=== PATIENT | male | born 1995 | race African-American/Black ===

== ENCOUNTER 2016-02-20 20:20 | Emergency (ER) | payer OTHER ==
--- NOTE | 2016-02-20 22:13 | EDDOCDS ---
Physician Documentation [facility] Name: Alondra Barrera Age: 20 yrs Sex: Male : 1995 Arrival Date: 02/20/2016 Time: 20:20 Bed TR7 Private MD: [facility] [place] Disposition: 02/20/16 21:59 Discharged to Home/Self Care. Impression: Acute upper respiratory infections of multiple and unspecified sites. - Condition is Stable. - Discharge Instructions: Pharyngitis. - Prescriptions for lidocaine HCl 2 % Mucous Membrane solution - take 15 milliliter by ORAL route every 3 hours As needed swish, gargle and spit.; 200 milliliter. Prednisone 20 mg Oral Tablet - take 1 tablet by ORAL route once daily for 5 days; 5 tablet. - Medication Reconciliation, Local Pharmacy Hours form. - Follow up: Emergency Department; When: As needed. Follow up: [facility]; When: Call to arrange an appointment; Reason: Wound/Symptom Recheck, Recheck today's complaints, Continuance of care. - Problem is an ongoing problem. - Symptoms are unchanged. Historical: - Home Meds: 1. albuterol sulfate 90 mcg/actuation Inhl HFAA every 4-6 hours (Last dose: 02/19/2016) 2. Advair Diskus 250-50 mcg/dose Inhl dsdv (Last dose: 02/20/2016 07:00) - PMHx: Asthma; - PSHx: none; - Social history: Smoking status: Patient states was never smoker of tobacco. Patient/guardian denies using alcohol, street drugs, No barriers to communication noted, The patient speaks fluent [place] Rican, Speaks appropriately for age. - Family history: Not pertinent, No immediate family members are acutely ill. - : The pt / caregiver states he / she is not on anticoagulants. Home medication list is obtained from the patient. - Exposure Risk Screening:: None identified. Vital Signs: 02/19 20:22 BP 137 / 67; Pulse 88; Resp 18 S; Temp 97.7(O); Pulse Ox 100% on R/A; Weight 86.18 kg / dd6 189.99 lbs (R); Height 5 ft. 7 in. (170.18 cm) (R); 20:22 Body Mass Index 29.76 (86.18 kg, 170.18 cm) dd6 MDM: 21:36 Strep Screen, Nursing ordered. lf1 21:38 GATS (NEGATIVE STREP SCREEN) Ordered. EDMS Signatures: Dispatcher [employer] EDMS Johanna LathamRN RN lf1 Anette DavisRN RN rs3 Mary Beth Luciano RN RN ttb Daniel Boothe, PA-C PA-C cc10 MTDD
--- NOTE | 2016-02-20 22:13 | EDDOCDS ---
Nurse's Notes [facility] Name: Alondra Barrera Age: 20 yrs Sex: Male : 1995 Arrival Date: 02/20/2016 Time: 20:20 Bed TR7 Private MD: ORCharlie WOOD Diagnosis: Acute upper respiratory infections of multiple and unspecified sites Presentation: 02/19 20:33 Presenting complaint: Patient states: "white spot on the back of my throat" and "it was ttb swollen" x1 week. Adult Sepsis Screening: The patient does not have new or worsening altered mentation. Patient's respiratory rate is less than 22. Systolic blood pressure is greater than 100. Patient has a qSOFA score of 0- Negative Sepsis Screen. Suicide/Homicide risk assessment- the patient denies having any suicidal and/or homicidal ideations and does not present with any other emotional, behavioral or mental health complaints. 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 Transition of care: patient was not received from another setting of care. 20:33 Acuity: MEME Level 4 ttb 20:33 Method Of Arrival: Walkin/Carried/Asstd ttb Triage Assessment: 20:35 General: Appears in no apparent distress, well nourished, well groomed, Behavior is ttb appropriate for age, cooperative, pleasant. Pain: Location: throat, left greater than right 7/10. HIV screening NA for this visit Offered previously. Neurological: Level of Consciousness is awake, alert, Oriented to person, place, time. EENT: Reports pain in throat when swallowing Denies nasal congestion, nasal discharge. Cardiovascular: Chest pain is denied. Respiratory: Airway is patent Respiratory effort is even, unlabored, Reports cough that is non-productive, Denies shortness of breath. Derm: Skin is normal. Injury Description: No known injury. Historical: - Home Meds: 1. albuterol sulfate 90 mcg/actuation Inhl HFAA every 4-6 hours (Last dose: 02/19/2016) 2. Advair Diskus 250-50 mcg/dose Inhl dsdv (Last dose: 02/20/2016 07:00) - PMHx: Asthma; - PSHx: none; - Social history: Smoking status: Patient states was never smoker of tobacco. Patient/guardian denies using alcohol, street drugs, No barriers to communication noted, The patient speaks fluent [place] Islander, Speaks appropriately for age. - Family history: Not pertinent, No immediate family members are acutely ill. - : The pt / caregiver states he / she is not on anticoagulants. Home medication list is obtained from the patient. - Exposure Risk Screening:: None identified. Screenin:51 Screening information is obtained from the patient. Fall risk: No risks identified. lf1 Assistance ADL's: requires no assistance with activities of daily living. Abuse/DV Screen: The patient / caregiver reports he/she is: not in a situation that causes fear, pain or injury. Nutritional screening: No deficits noted. Advance Directives: Currently, there is no health care proxy. There is no active DNR order. home support is adequate. Assessment: 20:51 General: Appears in no apparent distress, comfortable, Behavior is cooperative. Pain: lf1 Location: throat Pain currently is 7 out of 10 on a pain scale. Neurological: Level of Consciousness is awake, alert, Oriented to person, place, time. EENT: Throat is reddened Reports pain with swallowing. Cardiovascular: Chest pain is denied. Respiratory: Respiratory effort is even, unlabored, Reports cough that is the patient has mild shortness of breath. GI: Denies nausea, vomiting. : Denies burning with urination, inability to void, urinary frequency. Derm: Skin is normal. Injury Description: No known injury. Vital Signs: 20:22 BP 137 / 67; Pulse 88; Resp 18 S; Temp 97.7(O); Pulse Ox 100% on R/A; Weight 86.18 kg dd6 (R); Height 5 ft. 7 in. (170.18 cm) (R); 20:22 Body Mass Index 29.76 (86.18 kg, 170.18 cm) dd6 Vitals: 20:22 Log In Time: February 20, 2016 at 20:20. dd6 21:37 Strep Screen is obtained and tested: Negative, a GATSNEG culture is ordered in [facility] and sent. ED Course: 20:21 Patient visited by Robi Mcknight PCA. dd6 20:21 [facility], Charlie Guathier is Private Physician. dd6 20:21 Patient moved to Waiting dd6 20:22 Patient moved to Pre RCE dd6 20:34 Triage Initiated ttb 20:36 Patient visited by Mary Beth Luciano RN. ttb 20:51 Patient moved to Triage 2 lf1 20:51 The patient / caregiver is instructed regarding the plan of care and ED course. lf1 20:59 Patient visited by Johanna Latham RN. lf1 21:40 GATS (NEGATIVE STREP SCREEN) Sent. ar3 21:55 [facility] cc10 21:55 Erwin Stovall DO is Attending Physician. cc10 21:55 Patient visited by Daniel Boothe PA-C. cc10 21:55 Patient visited by Daniel Boothe PA-C. cc10 21:59 [facility] cc10 22:07 Patient moved to TR7 ar3 22:12 No IV's were initiated during this patient's visit. No procedures done that require rs3 assistance. Order Results: There are currently no results for this order. Outcome: 21:59 Discharge ordered by Provider. cc10 22:08 Discharge Assessment: patient administered narcotics - no. The following High Risk rs3 Discharge criteria are identified: None. Discharged to home ambulatory. Condition: stable. Discharge instructions given to patient, Instructed on discharge instructions, follow up and referral plans. medication usage, Demonstrated understanding of instructions, medications, Pt was receptive of discharge instructions/ teaching. Prescriptions given X 2. No special radiology studies were completed. Property :Personal belongings accompany Pt. 22:12 Patient left the ED. rs3 Signatures: Johanna Latham RN RN lf1 Robi Mcknight, FINISHED GOODS STOCK CLERK FINISHED GOODS STOCK CLERK dd6 Anette Davis RN RN rs3 Sumaya Alarcon, FINISHED GOODS STOCK CLERK FINISHED GOODS STOCK CLERK ar3 Mary Beth Luciano RN RN ttb Daniel Boothe PA-C PA-C cc10 MTDD
--- NOTE | 2016-02-22 23:13 | EDDOCDS ---
Physician Documentation [facility] Name: Alondra Barrera Age: 20 yrs Sex: Male : 1995 Arrival Date: 02/20/2016 Time: 20:20 Bed TR7 Private MD: [facility] [place] Disposition: 02/20/16 21:59 Discharged to Home/Self Care. Impression: Acute upper respiratory infections of multiple and unspecified sites. - Condition is Stable. - Discharge Instructions: Pharyngitis. - Prescriptions for lidocaine HCl 2 % Mucous Membrane solution - take 15 milliliter by ORAL route every 3 hours As needed swish, gargle and spit.; 200 milliliter. Prednisone 20 mg Oral Tablet - take 1 tablet by ORAL route once daily for 5 days; 5 tablet. - Medication Reconciliation, Local Pharmacy Hours form. - Follow up: Emergency Department; When: As needed. Follow up: [facility]; When: Call to arrange an appointment; Reason: Wound/Symptom Recheck, Recheck today's complaints, Continuance of care. - Problem is an ongoing problem. - Symptoms are unchanged. Historical: - Home Meds: 1. albuterol sulfate 90 mcg/actuation Inhl HFAA every 4-6 hours (Last dose: 02/19/2016) 2. Advair Diskus 250-50 mcg/dose Inhl dsdv (Last dose: 02/20/2016 07:00) - PMHx: Asthma; - PSHx: none; - Social history: Smoking status: Patient states was never smoker of tobacco. Patient/guardian denies using alcohol, street drugs, No barriers to communication noted, The patient speaks fluent Belarusian, Speaks appropriately for age. - Family history: Not pertinent, No immediate family members are acutely ill. - : The pt / caregiver states he / she is not on anticoagulants. Home medication list is obtained from the patient. - Exposure Risk Screening:: None identified. Vital Signs: 02/19 20:22 BP 137 / 67; Pulse 88; Resp 18 S; Temp 97.7(O); Pulse Ox 100% on R/A; Weight 86.18 kg / dd6 189.99 lbs (R); Height 5 ft. 7 in. (170.18 cm) (R); 20:22 Body Mass Index 29.76 (86.18 kg, 170.18 cm) dd6 MDM: 21:36 Strep Screen, Nursing ordered. lf1 21:38 GATS (NEGATIVE STREP SCREEN) Ordered. EDMS 02/20 01:12 T-Sheet-- Draft Copy was scanned into [employer] and attached to record. hs2 02/21 16:24 [facility] Payment Agreement was scanned into [employer] and attached to record. zo Signatures: Dispatcher [employer] EDMS Brenda Bran Lisa,RN RN lf1 Anette DavisRN RN rs3 Mary Beth Luciano, XENA RN ttb Daniel Boothe, PA-C PA-C cc10 Natalie Marino, Reg Reg hs2 The chart was reviewed and I authenticate all verbal orders and agree with the evaluation and treatment provided.Attachments: 02/20 01:12 T-Sheet-- Draft Copy hs2 02/21 16:24 [facility] Payment Agreement zo Chart Complete MTDD
--- NOTE | 2016-02-22 23:13 | EDDOCDS ---
Physician Documentation [facility] Name: Alondra Barrera Age: 20 yrs Sex: Male : 1995 Arrival Date: 02/20/2016 Time: 20:20 Bed TR7 Private MD: [facility] [place] Disposition: 02/20/16 21:59 Discharged to Home/Self Care. Impression: Acute upper respiratory infections of multiple and unspecified sites. - Condition is Stable. - Discharge Instructions: Pharyngitis. - Prescriptions for lidocaine HCl 2 % Mucous Membrane solution - take 15 milliliter by ORAL route every 3 hours As needed swish, gargle and spit.; 200 milliliter. Prednisone 20 mg Oral Tablet - take 1 tablet by ORAL route once daily for 5 days; 5 tablet. - Medication Reconciliation, Local Pharmacy Hours form. - Follow up: Emergency Department; When: As needed. Follow up: [facility]; When: Call to arrange an appointment; Reason: Wound/Symptom Recheck, Recheck today's complaints, Continuance of care. - Problem is an ongoing problem. - Symptoms are unchanged. Historical: - Home Meds: 1. albuterol sulfate 90 mcg/actuation Inhl HFAA every 4-6 hours (Last dose: 02/19/2016) 2. Advair Diskus 250-50 mcg/dose Inhl dsdv (Last dose: 02/20/2016 07:00) - PMHx: Asthma; - PSHx: none; - Social history: Smoking status: Patient states was never smoker of tobacco. Patient/guardian denies using alcohol, street drugs, No barriers to communication noted, The patient speaks fluent Vietnamese, Speaks appropriately for age. - Family history: Not pertinent, No immediate family members are acutely ill. - : The pt / caregiver states he / she is not on anticoagulants. Home medication list is obtained from the patient. - Exposure Risk Screening:: None identified. Vital Signs: 02/19 20:22 BP 137 / 67; Pulse 88; Resp 18 S; Temp 97.7(O); Pulse Ox 100% on R/A; Weight 86.18 kg / dd6 189.99 lbs (R); Height 5 ft. 7 in. (170.18 cm) (R); 20:22 Body Mass Index 29.76 (86.18 kg, 170.18 cm) dd6 MDM: 21:36 Strep Screen, Nursing ordered. lf1 21:38 GATS (NEGATIVE STREP SCREEN) Ordered. EDMS 02/20 01:12 T-Sheet-- Draft Copy was scanned into [employer] and attached to record. hs2 02/21 16:24 [facility] Payment Agreement was scanned into [employer] and attached to record. zo Signatures: Dispatcher [employer] EDMS Brenda Bran Lisa,RN RN lf1 Anette DavisRN RN rs3 Mary Beth Luciano, XENA RN ttb Daniel Boothe, PA-C PA-C cc10 Natalie Marino, Reg Reg hs2 The chart was reviewed and I authenticate all verbal orders and agree with the evaluation and treatment provided.Attachments: 02/20 01:12 T-Sheet-- Draft Copy hs2 02/21 16:24 [facility] Payment Agreement zo Chart Complete MTDD
--- NOTE | 2016-02-22 23:13 | EDDOCDS ---
Nurse's Notes [facility] Name: Alondra Barrera Age: 20 yrs Sex: Male : 1995 Arrival Date: 02/20/2016 Time: 20:20 Bed TR7 Private MD: VACharlie WOOD Diagnosis: Acute upper respiratory infections of multiple and unspecified sites Presentation: 02/19 20:33 Presenting complaint: Patient states: "white spot on the back of my throat" and "it was ttb swollen" x1 week. Adult Sepsis Screening: The patient does not have new or worsening altered mentation. Patient's respiratory rate is less than 22. Systolic blood pressure is greater than 100. Patient has a qSOFA score of 0- Negative Sepsis Screen. Suicide/Homicide risk assessment- the patient denies having any suicidal and/or homicidal ideations and does not present with any other emotional, behavioral or mental health complaints. 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 Transition of care: patient was not received from another setting of care. 20:33 Acuity: MEME Level 4 ttb 20:33 Method Of Arrival: Walkin/Carried/Asstd ttb Triage Assessment: 20:35 General: Appears in no apparent distress, well nourished, well groomed, Behavior is ttb appropriate for age, cooperative, pleasant. Pain: Location: throat, left greater than right 7/10. HIV screening NA for this visit Offered previously. Neurological: Level of Consciousness is awake, alert, Oriented to person, place, time. EENT: Reports pain in throat when swallowing Denies nasal congestion, nasal discharge. Cardiovascular: Chest pain is denied. Respiratory: Airway is patent Respiratory effort is even, unlabored, Reports cough that is non-productive, Denies shortness of breath. Derm: Skin is normal. Injury Description: No known injury. Historical: - Home Meds: 1. albuterol sulfate 90 mcg/actuation Inhl HFAA every 4-6 hours (Last dose: 02/19/2016) 2. Advair Diskus 250-50 mcg/dose Inhl dsdv (Last dose: 02/20/2016 07:00) - PMHx: Asthma; - PSHx: none; - Social history: Smoking status: Patient states was never smoker of tobacco. Patient/guardian denies using alcohol, street drugs, No barriers to communication noted, The patient speaks fluent Kosovan, Speaks appropriately for age. - Family history: Not pertinent, No immediate family members are acutely ill. - : The pt / caregiver states he / she is not on anticoagulants. Home medication list is obtained from the patient. - Exposure Risk Screening:: None identified. Screenin:51 Screening information is obtained from the patient. Fall risk: No risks identified. lf1 Assistance ADL's: requires no assistance with activities of daily living. Abuse/DV Screen: The patient / caregiver reports he/she is: not in a situation that causes fear, pain or injury. Nutritional screening: No deficits noted. Advance Directives: Currently, there is no health care proxy. There is no active DNR order. home support is adequate. Assessment: 20:51 General: Appears in no apparent distress, comfortable, Behavior is cooperative. Pain: lf1 Location: throat Pain currently is 7 out of 10 on a pain scale. Neurological: Level of Consciousness is awake, alert, Oriented to person, place, time. EENT: Throat is reddened Reports pain with swallowing. Cardiovascular: Chest pain is denied. Respiratory: Respiratory effort is even, unlabored, Reports cough that is the patient has mild shortness of breath. GI: Denies nausea, vomiting. : Denies burning with urination, inability to void, urinary frequency. Derm: Skin is normal. Injury Description: No known injury. Vital Signs: 20:22 BP 137 / 67; Pulse 88; Resp 18 S; Temp 97.7(O); Pulse Ox 100% on R/A; Weight 86.18 kg dd6 (R); Height 5 ft. 7 in. (170.18 cm) (R); 20:22 Body Mass Index 29.76 (86.18 kg, 170.18 cm) dd6 Vitals: 20:22 Log In Time: February 20, 2016 at 20:20. dd6 21:37 Strep Screen is obtained and tested: Negative, a GATSNEG culture is ordered in [facility] and sent. ED Course: 20:21 Patient visited by Robi Mcknight PCA. dd6 20:21 [facility], Charlie Gauthier is Private Physician. dd6 20:21 Patient moved to Waiting dd6 20:22 Patient moved to Pre RCE dd6 20:34 Triage Initiated ttb 20:36 Patient visited by Mary Bteh Luciano RN. ttb 20:51 Patient moved to Triage 2 lf1 20:51 The patient / caregiver is instructed regarding the plan of care and ED course. lf1 20:59 Patient visited by Johanna Latham RN. lf1 21:40 GATS (NEGATIVE STREP SCREEN) Sent. ar3 21:55 Daniel Boothe PA-C is PHCP. cc10 21:55 Erwin Stovall DO is Attending Physician. cc10 21:55 Patient visited by Dnaiel Boothe PA-C. cc10 21:55 Patient visited by Daniel Boothe PA-C. cc10 21:59 [facility]. cc10 22:07 Patient moved to TR7 ar3 22:12 No IV's were initiated during this patient's visit. No procedures done that require rs3 assistance. 02/20 01:12 T-Sheet-- Draft Copy was scanned into [employer] and attached to record. hs2 02/21 16:24 [facility] Payment Agreement was scanned into [employer] and attached to record. zo Order Results: Lab Order: GATS (NEGATIVE STREP SCREEN); SPEC'M 02/20/16 21:41 Test: GATS CULTURE (NEG STREP SCR); Value: GATS RESULT NEGATIVE FOR STREP PYOGENES (GROUP A); Status: F Outcome: 02/19 21:59 Discharge ordered by Provider. cc10 22:08 Discharge Assessment: patient administered narcotics - no. The following High Risk rs3 Discharge criteria are identified: None. Discharged to home ambulatory. Condition: stable. Discharge instructions given to patient, Instructed on discharge instructions, follow up and referral plans. medication usage, Demonstrated understanding of instructions, medications, Pt was receptive of discharge instructions/ teaching. Prescriptions given X 2. No special radiology studies were completed. Property :Personal belongings accompany Pt. 22:12 Patient left the ED. rs3 Signatures: Brenda Bran Lisa,RN RN lf1 Robi Mcknight, RESOURCE ANALYST RESOURCE ANALYST dd6 Anette Davis RN RN rs3 Sumaya Alarcon, RESOURCE ANALYST RESOURCE ANALYST ar3 Mary Beth Luciano RN RN ttb Daniel Boothe PA-C PA-C cc10 Marino, Natalie, Reg Reg hs2 Chart Complete MTDD
== END 2016-02-20 22:12 | disposition home or self-care (01) ==
LOC: M ED 20:20
DX: J02.9 Acute pharyngitis, unspecified (principal); J45.909 Unspecified asthma, uncomplicated; Z92.240 Personal history of inhaled steroid therapy

== ENCOUNTER 2016-12-28 00:48 | Emergency (ER) | payer OTHER ==
[~2016-12-28] VITALS: Ht 172.7 cm; Wt 96.4 kg
[2016-12-28] MEDS ORDERED: ALBU0.63 INH (00:57)
[2016-12-28] MEDS ORDERED: ADV250INH INH (00:57)
[2016-12-28] MEDS ORDERED: KETOROLAC 30 MG/ML VIAL (J1885) IV ONE (01:30)
[2016-12-28 01:37] LABS: BASO # 0.1 10^3/uL (0.0-0.2); BASO % 0.8 % (0.0-1.0); EOS # 0.4 10^3/uL (0.0-0.50); EOS % 4.6 % (0.0-3.0); IMMATURE GRANULOCYTE % 0.7 % (0-0); LYMPH # 2.8 10^3/uL (1.5-6.5); LYMPH % 30.3 % (24.0-44.0); MEAN CORPUSCULAR HEMOGLOBIN 29.7 pg (27.0-33.0); MEAN CORPUSCULAR HGB CONC 34.1 g/dl (32.0-36.5); MONO # 0.8 10^3/uL (0.0-0.8); MONO % 8.5 % (0.0-5.0); NEUTROPHILS % 55.1 % (36.0-66.0); PLATELET COUNT, AUTOMATED 310 10^3/uL (150-450); RED CELL DISTRIBUTION WIDTH 12.5 % (11.5-14.5); WHITE BLOOD COUNT 9.1 10^3/uL (4.0-10.0)
[2016-12-28 01:50] LABS: ANION GAP 5 MEQ/L (8-16); BLOOD UREA NITROGEN 18 MG/DL (7-18); CALCIUM LEVEL 9.1 MG/DL (8.5-10.1); CARBON DIOXIDE LEVEL 29 MEQ/L (21-32); CHLORIDE LEVEL 107 MEQ/L (98-107); GLOMERULAR FILTRATION RATE > 60.0 (>60); GLUCOSE, FASTING 107 MG/DL (70-105); POTASSIUM SERUM 4.3 MEQ/L (3.5-5.1); SODIUM LEVEL 141 MEQ/L (136-145)
[2016-12-28 02:09] LABS: INR 0.97
[2016-12-28 02:14] LABS: ABG HCO3 24.7 MEQ/L (22.0-26.0); ABG PARTIAL PRESSURE CO2 40.5 mmHg (35.0-45.0); ABG PARTIAL PRESSURE O2 94.1 mmHg (75.0-100.0); ABG STANDARD HCO3 24.5 MEQ/L (22.0-26.0); ABG TOTAL CO2 25.9 MEQ/L (22.0-29.0); ABG pH (ARTERIAL) 7.403 UNITS (7.350-7.450)
[2016-12-28] MEDS ORDERED: dexameTHASONE 20 MG/5 ML VIAL (J1100) IV ONE (05:15)
[2016-12-28] MEDS ORDERED: NS 1,000 ML IV ONE (05:15)
[2016-12-28 06:15] VITALS: BP 99/51
--- NOTE | 2016-12-28 07:47 | ECGEPIP ---
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
--- NOTE | 2016-12-28 07:47 | ECGEPIP ---
Stationary ECG Study 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
--- NOTE | 2016-12-28 07:53 | REP ---
Clinical: Chest pain . Comparison: 02/02/2016 . Technique: PA and lateral. Findings: The mediastinum and cardiac silhouette are normal. The lung kyle are clear and without acute consolidation, effusion, or pneumothorax. The skeletal structures are intact and normal. Impression: 1. No acute cardiopulmonary process. Signed by Jairo Reed MD 12/28/2016 07:46 A
== END 2016-12-28 06:33 | disposition home or self-care (01) ==
LOC: M ED 00:48
DX: R07.81 Pleurodynia (principal); J45.909 Unspecified asthma, uncomplicated; Z79.51 Long term (current) use of inhaled steroids
CPT/HCPCS: 36600; 71020; 80048; 82550; 82553; 82803; 85025; 85610; 85730; 93005; 96374; 96375; 99284; J1100; J1885